=== PATIENT | female | born 1995 | race Caucasian/White ===

== ENCOUNTER 2016-10-13 20:56 | Emergency (ER) | payer BC ==
[2016-10-13 21:03] VITALS: TEMP 98.1
--- NOTE | 2016-10-13 21:26 | EDPHY ---
H & P Stated Complaint: SZ today, fell/struck head, BRAGG Source: Patient, Family Exam Limitations: No limitations - Personal History LMP (Females 10-55): Now Current Tetanus/Diphtheria Vaccine: Unsure Current Tetanus Diphtheria and Acellular Pertussis (TDAP): Unsure - Medical/Surgical History Hx Asthma: No Hx Chronic Respiratory Disease: No Hx Diabetes: No Hx Cardiac Disease: No Hx Renal Disease: No Hx Cirrhosis: No Hx Alcoholism: No Hx HIV/AIDS: No Hx Splenectomy or Spleen Trauma: No Other PMH: benign heart murmur, SZ disorder - Social History Smoking Status: Never smoked Time Seen by Provider: 10/13/16 21:11 HPI/ROS: CHIEF COMPLAINT: seizure, head injury HISTORY OF PRESENT ILLNESS: 21-year-old female with seizure history presents to the emergency department with her boyfriend after she had a tonic-clonic seizure just prior to arrival. Patient's boyfriend reports they were standing in the living room, she fell to the ground striking the right side posterior head and she had jerking motions of her arms and legs for less than a minute, she was confused for several minutes afterwards. The patient comes in complaining of a headache and mild nausea. She denies neck pain. Patient denies drug or alcohol use, she reports she is taking her medications as prescribed which includes gabapentin and an SSRI for her seizures she is followed by Dr. Torres. Patient denies chest pain or shortness of breath, no recent cough or cold, no abdominal pain, no dizziness or lightheadedness. REVIEW OF SYSTEMS: A comprehensive 10 point review of systems is otherwise negative aside from elements mentioned in the history of present illness. (Kae Aguirre) - Physical Exam Exam: Physical Exam Gen: Alert and Oriented, NAD HEENT: PERRL, moist mucous membranes, no scalp tenderness, contusions or abrasions, no tongue abrasion NECK: no C-spine tenderness CV: regular rate and regular rhythm PULM: CTAB, no wheezes ABDOMEN: soft, non tender to palpation, BS present BACK: No CVA tenderness NEURO: Neurologically grossly intact EXTREMITIES: normal appearing SKIN: no rash or break in skin on exposed skin PSYCH: answers questions appropriately. (Kae Aguirre) Constitutional: Initial Vital Signs Temperature (C) 36.7 C 10/13/16 20:59 Heart Rate 98 10/13/16 20:59 Respiratory Rate 16 10/13/16 20:59 Blood Pressure 128/84 H 10/13/16 20:59 O2 Sat (%) 97 10/13/16 20:59 O2 Delivery Mode Room Air Allergies/Adverse Reactions: amoxicillin [Amoxicillin] Allergy (Verified 10/13/16 20:58) Home Medications: Medication Instructions Recorded Lutera-28 Tablet 03/13/14 Acyclovir 04/05/16 GABAPENTIN 04/05/16 Zoloft 100mg (*) 04/05/16 Medical Decision Making - Diagnostics Imaging: CT brain- Impression: 1. Normal brain. No mass or swelling. 2. No acute fracture or acute intracranial hemorrhage. Comment: Results called to Kae Aguirre NP at 950 p.m. October 13, 2016. Dictated By: Alex Mckay MD (Kae Aguirre) ED Course/Re-evaluation: Blood was drawn, i-STAT shows a normal H&H, normal chemistry panel with normal electrolytes. test is negative. CT brain obtained showing no acute abnormality. Patient is discharged with instructions to follow up with her neurologist Dr. Torres. She is given Dr. Davison's phone number for concussion treatment for continued concussion symptoms that last more than 3 days. She is given return precautions for worsening symptoms. I had a long discussion with the patient about not driving or operating machinery, no swimming, no activities where she could danger herself for other in case of another seizure. (Kae Aguirre) Differential Diagnosis: The differential diagnosis for the patient's head injury included but was not limited to concussion, skull fracture, intra-parenchymal contusion, subarachnoid , subdural and epidural hematoma. (Kae Aguirre) Other Provider: The patient wasevaluatedand managed by themlalevel provider. My co-signature indicates that [facility] reviewed this chart and I agree with the findings and plan of care asdocumented. I am the secondary supervisingphysician. (Mica Schmidt) - Data Points Medications Given: Discontinued Medications Acetaminophen (Tylenol) 650 mg PO EDNOW ONE Stop: 10/13/16 21:56 Last Admin: 10/13/16 21:58 Dose: 650 mg Ondansetron HCl (Zofran Odt) 4 mg PO EDNOW ONE Stop: 10/13/16 21:56 Last Admin: 10/13/16 21:58 Dose: 4 mg Departure - Departure Disposition: Home, Routine, Self-Care Clinical Impression: Seizure disorder, Head injury Condition: Good Instructions: Epilepsy (ED), Head Injury (ED) Additional Instructions: Follow-up with Dr. Torres next week for re-evaluation. Follow up with Dr. Davison for any continued concussion symptoms that last more than 3 days such as nausea, feeling foggy, headache. Return to the emergency department for any forceful vomiting, confusion, altered gait, any other questions or concerns. 1. No driving, dangerous activities such as riding a ski lift, swimming in a pool or other behavior that could put you or someone else at risk in the event of a recurrent seizure. You will need to be cleared by a neurologist to resume these activities. 2. Please return to the ED for recurrent seizure, headache, numbness, weakness, altered mental status or other concerns. 3. Please follow up with neurologist you have been referred to this week to schedule a follow-up appointment. Referrals: Cl Torres DO [Medical Doctor] - As per Instructions Yanet Davison MD [Medical Doctor] - As per Instructions (Concussion specialist)
[2016-10-13] MEDS ORDERED: ONDANSETRON DISINTEGRATING 4 MG TAB PO ONE (21:55)
[2016-10-13] MEDS ORDERED: ACETAMINOPHEN 325 MG TAB PO ONE (21:55)
--- NOTE | 2016-10-13 21:55 | CT ---
CT Head (Without Contrast) 2140 p.m. Indication: Seizure today. Struck right occipital region. Technique: Standard noncontrast head CT protocol utilizing 5 mm thick collimated slices and field of view of 23 cm. Dose reduction techniques were utilized. Findings: No intracranial hemorrhage, contusion, swelling, or extraaxial fluid collection. The ventri cles are normal caliber and midline. The schwab and white matter has normal attenuation. No acute fract ure. The paranasal sinuses are clear. Impression: 1. Normal brain. No mass or swelling. 2. No acute fracture or acute intracranial hemorrhage. Comment: Results called to Kae Aguirre NP at 950 p.m. October 13, 2016.
[2016-10-13 23:24] VITALS: BP 126/76; PULSE 74; RESP 18; O2SAT 98
== END 2016-10-13 23:26 | disposition home or self-care (01) ==
DX: S09.90XA Unspecified injury of head, initial encounter (principal); G40.909 Epilepsy, unspecified, not intractable, without status epilepticus; W01.198A Fall on same level from slipping, tripping and stumbling with subsequent striking against other object, initial encounter; Y93.89 Activity, other specified
CPT/HCPCS: 82947-QW

== ENCOUNTER 2016-11-28 14:15 | Emergency (ER) | payer BC ==
[2016-11-28] MEDS ORDERED: ONDANSETRON 4 MG/2 ML VIAL IVP ONE ×2 (14:31→15:33)
[2016-11-28] MEDS ORDERED: ONDANSETRON DISINTEGRATING 4 MG TAB PO ONE (14:31)
[2016-11-28 15:04] LABS: % IMMATURE GRANULYOCYTES 0.5 % (0.0-1.1); ABSOLUTE IMMATURE GRANULOCYTES 0.05 10^3/uL (0.00-0.10); ADD DIFF? NO; ADD MORPH? NO; ADD SCAN? NO; ATYPICAL LYMPHOCYTE FLAG 0 (0-99); FRAGMENT RBC FLAG 0 (0-99); HEMATOCRIT 43.6 % (38.0-47.0); HEMOGLOBIN 15.8 g/dL (12.6-16.3); LEFT SHIFT FLG 0 (0-99); LIPEMIA HEMOLYSIS FLAG 90 (0-99); MEAN CELL HEMOGLOBIN 34.1 pg (27.9-34.1); MEAN CELL HEMOGLOBIN CONCENTR. 36.2 g/dL (32.4-36.7); MEAN CELL VOLUME 94.2 fL (81.5-99.8); MEAN PLATELET VOLUME 8.5 fL (8.7-11.7); PLATELET CLUMPS FLAG 0 (0-99); PLATELET COUNT 318 10^3/uL (150-400); RED BLOOD CELL COUNT 4.63 10^6/uL (4.18-5.33); RED CELL DISTRIBUTION WIDTH 12.2 % (11.5-15.2)
[2016-11-28 15:20] LABS: ANION GAP 18 mEq/L (8-16); CALCIUM 10.3 mg/dL (8.5-10.4); CARBON DIOXIDE 19 mEq/l (22-31); CHLORIDE 104 mEq/L (97-110); CREATININE 0.6 mg/dL (0.6-1.0); GLOMERULAR FILTRATION RATE > 60; GLUCOSE 161 mg/dL (70-100); POTASSIUM 3.3 mEq/L (3.5-5.2); SODIUM 141 mEq/L (134-144)
[2016-11-28] MEDS ORDERED: FAMOTIDINE 20 MG/NACL 50 ML IV ONE (15:23)
[2016-11-28] MEDS ORDERED: fentaNYL 100 MCG/2 ML INJ IVP ONE ×2 (15:31→17:06)
[2016-11-28 15:44] LABS: ALBUMIN 5.1 g/dL (3.5-5.0); BILIRUBIN,TOTAL 0.8 mg/dL (0.1-1.4); BILIRUBIN-CONJUGATED 0.4 mg/dL (0.0-0.5); BILIRUBIN-UNCONJUGATED 0.4 mg/dL (0.0-1.1)
[2016-11-28] MEDS ORDERED: PROMETHAZINE HCL 25 MG TAB PO ONE (17:32)
[2016-11-28] MEDS ORDERED: NS 1,000 ML IV ONE (17:32)
--- NOTE | 2016-11-28 19:31 | EDPHY ---
H & P Stated Complaint: Nausea, vomiting, epigastric pain. Time Seen by Provider: 11/28/16 14:54 HPI/ROS: CHIEF COMPLAINT: Vomiting HISTORY OF PRESENT ILLNESS: This is a 21-year-old female who presents with midepigastric pain, nausea, vomiting that has been present for the past 10 hours. She describes the pain as persistent and crampy. It is diffuse. It is not relieved by vomiting. She has not had fever. She denies diarrhea. No history of abdominal surgery. She denies back pain, flank pain, and dysuria. REVIEW OF SYSTEMS: A ten point review of systems was performed and is negative with the exception of the items mentioned in the HPI. Source: Patient Exam Limitations: No limitations - Personal History LMP (Females 10-55): Extended Cycle BCP/Inj Current Tetanus/Diphtheria Vaccine: Unsure Current Tetanus Diphtheria and Acellular Pertussis (TDAP): Unsure - Medical/Surgical History Hx Asthma: No Hx Chronic Respiratory Disease: No Hx Diabetes: No Hx Cardiac Disease: No Hx Renal Disease: No Hx Cirrhosis: No Hx Alcoholism: No Hx HIV/AIDS: No Hx Splenectomy or Spleen Trauma: No Other PMH: Seizure disorder. 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 - Physical Exam Exam: General Appearance: Alert. Vital signs reviewed. Blood pressure 127/76. Eyes: Pupils equal and round, no conjunctival injection, no discharge. Anicteric. ENT, Mouth: Mucous membranes are moist, no oropharyngeal erythema or edema. Neck: No lymphadenopathy, supple. Respiratory: Lungs are clear to auscultation; no wheezes, rales, or rhonchi. Cardiovascular: Regular rate and rhythm; no murmur, rub, or gallop. Gastrointestinal: Abdomen is soft with diffuse tenderness, no guarding, no masses or organomegaly, bowel sounds normal. Skin: Warm and dry, no rashes on exposed skin, normal color. Back: Nontender to palpation over the thoracolumbar spine. No CVAT. Extremities: No lower extremity edema, no calf tenderness or swelling. Neurological: Alert and oriented. Moving all four extremities easily and equally. Psychiatric: Normal affect. Constitutional: Initial Vital Signs Temperature (C) 37 C 11/28/16 14:24 Heart Rate 79 11/28/16 14:24 Respiratory Rate 16 11/28/16 14:24 Blood Pressure 127/76 H 11/28/16 14:24 O2 Sat (%) 97 11/28/16 14:24 O2 Delivery Mode Room Air Allergies/Adverse Reactions: amoxicillin [Amoxicillin] Allergy (Intermediate, Verified 11/28/16 14:28) Rash Home Medications: Medication Instructions Recorded Lutera-28 Tablet 03/13/14 GABAPENTIN 04/05/16 Zoloft 100mg (*) 04/05/16 Ativan 11/28/16 Medical Decision Making ED Course/Re-evaluation: 21-year-old female with vomiting and abdominal pain. Her white blood cell count is mildly elevated. Blood sugar is also elevated. Potassium slightly diminished. She is not . I do not think that this is an ovarian cyst or ovarian torsion. She has no urinary symptoms, making urinary tract infection or pyelonephritis unlikely. In the emergency department she received normal saline IV for volume depletion secondary to vomiting, Zofran, and then Phenergan for control of nausea, and fentanyl for pain control. She also received IV Pepcid. She underwent serial evaluations while in the department. At no time did she have peritoneal signs. She did not have localized abdominal pain. I do not suspect appendicitis. It did take some time to get her vomiting under control. Ultimately she was able to tolerate a small amount of oral fluids. It is important that she be able to take her anti seizure medications. She is being discharged home in improved condition. She is given a prescription for Phenergan to use if needed. We reviewed the danger signs that should prompt her to be re-evaluated. Differential Diagnosis: Abdominal pain including but not limited to appendicitis, cholecystitis, gastritis and urinary tract infection. See medical decision making. - Data Points Laboratory Results: Laboratory Results 11/28/16 14:52 11/28/16 14:52 Medications Given: Discontinued Medications Fentanyl (Sublimaze) 50 mcg IVP EDNOW ONE Stop: 11/28/16 15:32 Last Admin: 11/28/16 15:55 Dose: 50 mcg Fentanyl (Sublimaze) 50 mcg IVP EDNOW ONE Stop: 11/28/16 17:07 Last Admin: 11/28/16 17:19 Dose: 50 mcg Famotidine/Sodium Chloride (Pepcid 20 Mg (Premix)) 50 mls @ 200 mls/hr IV EDNOW ONE Stop: 11/28/16 15:37 Last Admin: 11/28/16 15:55 Dose: 50 mls Sodium Chloride (Ns) 1,000 mls @ 0 mls/hr IV ONCE ONE PRN Reason: Wide Open Stop: 11/28/16 17:33 Last Admin: 11/28/16 17:42 Dose: 1,000 mls Ondansetron HCl (Zofran) 4 mg IVP EDNOW ONE Stop: 11/28/16 14:32 Last Admin: 11/28/16 14:53 Dose: 4 mg Ondansetron HCl (Zofran Odt) 4 mg PO EDNOW ONE Stop: 11/28/16 14:32 Last Admin: 11/28/16 15:06 Dose: Not Given Ondansetron HCl (Zofran) 4 mg IVP EDNOW ONE Stop: 11/28/16 15:34 Last Admin: 11/28/16 15:55 Dose: 4 mg Promethazine HCl (Phenergan) 25 mg PO EDNOW ONE Stop: 11/28/16 17:33 Last Admin: 11/28/16 17:42 Dose: 25 mg Promethazine HCl (Phenergan 25 Mg Prepack #4) 1 btl TAKEHOME EDNOW ONE Stop: 11/28/16 19:34 Last Admin: 11/28/16 19:57 Dose: 1 btl Departure - Departure Disposition: Home, Routine, Self-Care Clinical Impression: Vomiting Qualifiers: Vomiting type: unspecified Vomiting Intractability: non-intractable Nausea presence: with nausea Qualified Code(s): R11.2 - Nausea with vomiting, unspecified Condition: Good Instructions: Acute Nausea and Vomiting (ED) Additional Instructions: Adult Pain & Fever Control: We recommend Acetaminophen (Tylenol) and Ibuprofen (Motrin,Advil) for pain and fever control. When fever is high or pain severe, both drugs can be used at the same time, but at different intervals. Please note the time differences. Your dose is: Acetaminophen [650]mg every 4 to 6 hours Note: do not take Acetaminophen with Hydrocodone (Vicodin, Lortab) or Oycodone (Percocet). These medications also contain Acetaminophen. No more than 3000mg of Acetaminophen should be taken in 24 hours (for an adult). Use the Phenergan pills as needed for nausea. Clear liquids only tonight. If you develop any new or concerning symptoms--fever, severe persistent abdominal pain, intractable vomiting-- please return for another evaluation. Resume your medications as soon as your stomach feels more solid. As you know, you do not want to miss your seizure medication. Referrals: Raquel Reid MD [Medical Doctor] - As per Instructions
[2016-11-28] MEDS ORDERED: PROMETHAZINE 25 MG PREPACK #4 BTL TAKEHOME ONE (19:33)
[2016-11-28 20:11] VITALS: BP 113/69; PULSE 65; RESP 18; TEMP 98.2; O2SAT 98
== END 2016-11-28 20:10 | disposition home or self-care (01) ==
DX: R11.2 Nausea with vomiting, unspecified (principal)
CPT/HCPCS: 96374; J2405; J3010